=== PATIENT | male | born 1995 | race Two or more races ===

== ENCOUNTER 2022-09-14 01:52 | Emergency (ER) | payer MEDICAID ==
[~2022-09-14] VITALS: Ht 172.7 cm; Wt 75.7 kg
--- NOTE | 2022-09-14 02:09 | NUR ---
Patient refuses to speak. NAD noted.
--- NOTE | 2022-09-14 04:00 | NUR ---
Patient sleeping. NAD noted. Non-labored breathing note.
--- NOTE | 2022-09-14 06:20 | NUR ---
Patient sleeping. Easy to arouse when taking vitals. Still refusing to speak.
--- NOTE | 2022-09-14 07:04 | NUR ---
Report given to JACOB Arellano.
--- NOTE | 2022-09-14 07:57 | NUR ---
Patient discharged to home in stable condition. Verbal after care instructions given. Patient verbalizes understanding of instructions. Stressed follow up or return to ER for worsening s/s.
--- NOTE | 2022-09-14 07:57 | NUR ---
Patient ambulate with a brisk, steady gait.
[2022-09-14 08:00] VITALS: BP 121/75
== END 2022-09-14 07:57 | disposition home or self-care (01) ==
LOC: ER 01:52
DX: F10.129 Alcohol abuse with intoxication, unspecified (principal); G47.30 Sleep apnea, unspecified; R00.0 Tachycardia, unspecified
CPT/HCPCS: A4663